=== PATIENT | male | born 1965 ===

== ENCOUNTER 2018-02-28 20:10 | Emergency (ER) | payer BC, OTHER ==
[2018-02-28 20:24] VITALS: RESP 18
--- NOTE | 2018-02-28 20:31 | C.PDOC ---
History Of Present Illness 52 y/o male brought by ambulance to ED for complaints of sustaining a small laceration to his left ankle after stepping on broken glass while cleaning his front yard today. Patient also reports a syncopal episode. Denies fever, chills , or any other physical complaints. Patient currently states he remembers the events and is speaking in complete sentences. Time Seen by Provider: 02/28/18 20:30 Chief Complaint (Nursing): Dizziness/Lightheaded History Per: Patient, Family History/Exam Limitations: no limitations Onset/Duration Of Symptoms: Hrs Current Symptoms Are (Timing): Still Present Associated Symptoms Preceding Syncopal Episode: No Predromal Symptoms (Sudden Onset) Seizure Or Post-ictal Symptoms: None Fall Associated With With Symptoms: No Injury As Result Of Fall Recent travel outside of the [place]: No Past Medical History Reviewed: Historical Data, Nursing Documentation, Vital Signs Vital Signs: Last Vital Signs Temp 97.7 F 02/28/18 23:04 Pulse 66 02/28/18 23:04 Resp 18 02/28/18 23:04 BP 101/61 02/28/18 23:04 Pulse Ox 99 02/28/18 23:35 - Medical History PMH: HTN Family History: States: No Known Family Hx - Social History Hx Alcohol Use: No Hx Substance Use: No - Immunization History Hx Tetanus Toxoid Vaccination: No Hx Influenza Vaccination: Yes Hx Pneumococcal Vaccination: No Review Of Systems Constitutional: Negative for: Fever, Chills Gastrointestinal: Negative for: Nausea, Vomiting, Abdominal Pain, Diarrhea Skin: Positive for: Other (Small laceration to left ankle ). Negative for: Rash Neurological: Negative for: Weakness, Numbness, Dizziness Physical Exam - Physical Exam Appears: Non-toxic, No Acute Distress Skin: Warm, Dry, Other (Vitiligo; 1cm laceration to left medial aspect of left ankle ) Head: Normacephalic Eye(s): bilateral: Normal Inspection Oral Mucosa: Moist Neck: Trachea Midline, Supple Chest: Symmetrical Cardiovascular: Rhythm Regular Respiratory: No Rales, No Rhonchi, No Wheezing Gastrointestinal/Abdominal: Soft, No Tenderness, No Distention Back: No CVA Tenderness Extremity: Normal ROM, No Deformity Extremity: Bilateral: Atraumatic, Normal Color And Temperature, Normal ROM Pulses: Left Dorsalis Pedis: Normal, Right Dorsalis Pedis: Normal Neurological/Psych: Oriented x3, Normal Speech (Speaking in complete sentences ) Gait: Steady ED Course And Treatment - Laboratory Results Result Diagrams: 02/28/18 21:49 02/28/18 21:49 ECG: Interpreted By Me, Viewed By Me ECG Rhythm: Sinus Rhythm (71), Nonspecific Changes O2 Sat by Pulse Oximetry: 99 (RA) Pulse Ox Interpretation: Normal - CT Scan/US CT Head Other Rad Studies (CT/US): Read By Radiologist, Radiology Report Reviewed CT/US Interpretation: EXAM: CT Head Without Intravenous Contrast. EXAM DATE/ TIME: 02/28/2018 8:46 PM. CLINICAL HISTORY: 52 years old, male; Signs and symptoms; Syncope and collapse; Additional info: R/O bleed. TECHNIQUE: Axial computed tomography images of the head/brain without intravenous contrast. All CT scans at this facility use at least one of these dose optimization techniques : automated. exposure control; mA and/or kV adjustment per patient size ( includes targeted exams where dose is. matched to clinical indication); or iterative reconstruction. Coronal and sagittal reformatted images were created and reviewed. COMPARISON: No relevant prior studies available. FINDINGS: Brain: Moderate white matter disease and volume loss are identified. There is no acute infarct or. edema. There is encephalomalacia in the right frontal and bilateral temporal lobes. No hemorrhage. Ventricles: Normal. No ventriculomegaly. Bones/joints: Normal. No acute fracture. Sinuses: There is fluid in the ethmoid sinus. Mastoid air cells: Normal as visualized. No mastoid effusion. Soft tissues: Normal. IMPRESSION: There are no acute concerning abnormalities. Progress Note: Administered IV fluids. Ordered EKG, blood work, CT Head, and urinalysis. 11:45 PM upon discharge, pt ambulated outside of the hospital and started to bleed from his sutured laceration site. Gel foam applied and pressure dressing applied by me. No active bleeding noted with ambulation. good capilary refil and pedal pulses Laceration - Laceration Repair Left medial aspect of left ankle Wound Length (In cm): 1 Description Of Wound: Linear Wound Cleansed With: Sterile Saline Anesthesia: Lidocaine 1% (5cc), With Epi Wound Examination: Irrigated With Saline Wound Closure: Suture (2 4.o vycryl) Suture Technique And Material Used: Interrupted Wound Complexity: Simple (Well tolerated) Disposition Counseled Patient/Family Regarding: Studies Performed, Diagnosis, Need For Followup - Disposition Referrals: Jose Aleman MD [IM] - Disposition: HOME/ ROUTINE Disposition Time: 20:31 Condition: FAIR Additional Instructions: Please return if symptoms recur. Have a wound check in 2 days and sutures removed in 7-10 days Instructions: Laceration Repair With Stitches (DC) Forms: [email or web address] (Hebrew) - Clinical Impression Clinical Impression: Vaso vagal episode, Laceration of ankle, left - Scribe Statement The provider has reviewed the documentation as recorded by the Ikeibnasreen Baum All medical record entries made by the Ikeibnasreen were at my direction and personally dictated by me. I have reviewed the chart and agree that the record accurately reflects my personal performance of the history, physical exam, medical decision making, and the department course for this patient. I have also personally directed, reviewed, and agree with the discharge instructions and disposition.
[2018-02-28] MEDS ORDERED: Sodium Chloride 0.9% 1,000 ML IV ONE (20:46)
[2018-02-28] MEDS ORDERED: Lidocaine 1%/Epinephrine 1:100000 30 ml vial IJ ONE (20:46)
[2018-02-28] MEDS ORDERED: Bacitracin 500 Units/gm Oint Foilpak UD ONE (21:04)
[2018-02-28 21:57] LABS: BASO # 0.1 K/uL (0.0-0.2); BASO % 0.9 % (0.0-2.0); EOS # 0.2 K/uL (0.0-0.7); EOS % 2.2 % (0.0-4.0); HEMOGLOBIN 10.8 g/dL (12.0-18.0); LYMPH # 1.7 K/uL (1.0-4.3); LYMPH % 17.3 % (20.0-40.0); MEAN CELL VOLUME 92.2 fL (80.0-94.0); MEAN CORPUSCULAR HEMOGLOBIN 31.8 pg (27.0-31.0); MEAN CORPUSCULAR HGB CONC 34.5 g/dL (33.0-37.0); MEAN PLATELET VOLUME 8.4 fL (7.2-11.7); MONO # 0.4 K/uL (0.0-0.8); MONO % 4.4 % (0.0-10.0); NEUT # 7.2 K/uL (1.8-7.0); NEUT % 75.2 % (50.0-75.0); RBC 3.39 Mil/uL (4.40-5.90); WHITE BLOOD COUNT 9.6 K/uL (4.8-10.8)
[2018-02-28 22:02] LABS: INR 1.1
[2018-02-28 22:05] LABS: ALB/GLOB RATIO 1.3 (1.0-2.1); ALBUMIN 3.1 g/dL (3.5-5.0); ALT/SGPT 30 U/L (21-72); AST/SGOT 17 U/L (17-59); BLOOD UREA NITROGEN 16 mg/dL (9-20); CALCIUM 8.1 mg/dl (8.6-10.4); GFR AFRICAN-AMERICAN > 60; GFR NON-AFRICAN AMERICAN > 60
[2018-02-28 22:13] LABS: SQUAMOUS EPITHIAL < 1 /hpf (0-5); URINE BILIRUBIN NEGATIVE (NEGATIVE); URINE BLOOD 1+ (NEGATIVE); URINE CLARITY Hazy (Clear); URINE COLOR Yellow (YELLOW); URINE GLUCOSE (UA) NORMAL (Normal); URINE HYALINE CAST >20 /lpf (0-2); URINE LEUKOCYTE ESTERASE NEG Leu/uL (Negative); URINE PROTEIN 1+ mg/dL (NEGATIVE); URINE UROBILINOGEN NORMAL mg/dL (0.2-1.0)
[2018-02-28] MEDS ORDERED: Potassium Chloride 10 mEq ER Tab PO STA (22:15)
[2018-02-28] MEDS ORDERED: Potassium Chloride 10 mEq ER Tab PO ONE (22:35)
[2018-02-28 23:06] VITALS: BP 101/61; PULSE 66; TEMP 97.7
[2018-02-28 23:11] VITALS: O2SAT 99
[2018-02-28] MEDS ORDERED: Absorbable Gelatin Sponge Size 12-7 ONE (23:54)
--- NOTE | 2018-03-01 08:16 | CT ---
Date of service: 02/28/2018 PROCEDURE: CT HEAD WITHOUT CONTRAST. HISTORY: R/O Bleed COMPARISON: None available. TECHNIQUE: Axial computed tomography images were obtained through the head/brain without intravenous contrast. Radiation dose: Total exam DLP = 784 mGy-cm. This CT exam was performed using one or more of the following dose reduction techniques: Automated exposure control, adjustment of the mA and/or kV according to patient size, and/or use of iterative reconstruction technique. FINDINGS: HEMORRHAGE: No intracranial hemorrhage. BRAIN: Scattered focal lucencies in the subcortical and periventricular white matter suggestive for chronic microvascular ischemic change. Moderate white matter disease and volume loss are identified. Encephalomalacia in the right frontal and bilateral temporal lobes. VENTRICLES: Unremarkable. No hydrocephalus. CALVARIUM: Unremarkable. PARANASAL SINUSES: Fluid in the ethmoid air cells. MASTOID AIR CELLS: Unremarkable as visualized. No inflammatory changes. OTHER FINDINGS: None. IMPRESSION: Chronic microvascular ischemic change. Encephalomalacia in the right frontal and bilateral temporal lobes. Sinus mucosal disease. If symptoms persists, consider MRI. These findings were preliminarily reported at 11:18 p.m. on 02/28/[address] Ajit Jones from [facility].
--- NOTE | 2018-03-01 17:43 | CARD ---
APPROVED REPORT Date of service: 02/28/2018 EKG Measurement Heart [id number] <Conclusion> Normal sinus rhythm Normal ECG
== END 2018-03-01 00:07 | disposition home or self-care (01) ==
LOC: C.ER 20:10
DX: S91.012A Laceration without foreign body, left ankle, initial encounter (principal); W25.XXXA Contact with sharp glass, initial encounter; Y93.H9 Activity, other involving exterior property and land maintenance, building and construction; Y92.096 Garden or yard of other non-institutional residence as the place of occurrence of the external cause; R55 Syncope and collapse; E87.6 Hypokalemia
CPT/HCPCS: 12001; 70450; 80053; 81001; 82948; 84484; 85025; 85610; 85730; 87086; 93005; 99285; J7030

== ENCOUNTER 2018-03-02 11:07 | Emergency (ER) | payer BC ==
[2018-03-02 11:19] VITALS: BMI 29.2
[2018-03-02 11:21] VITALS: RESP 18
[2018-03-02] MEDS ORDERED: Tdap Vaccine 0.5 ml Vial (10-64 yrs) IM ONE (11:45)
[2018-03-02] MEDS ORDERED: Tetanus/Diphtheria Toxoids 0.5 ml Syringe IM ONE (12:00)
--- NOTE | 2018-03-02 12:05 | C.PDOC ---
History Of Present Illness 52 y/o male presents to ED with c/o oozing and swelling to wound on left ankle s /p syncopal episode 2 days ago. Patient was seen at ED 2 days ago after syncopal episode and injury to left ankle, had dressing put on but came to ED today with concerns for ankle becoming swollen and wound oozing. Patient denies fever, chills, redness or any other complaints at this time. Time Seen by Provider: 03/02/18 11:36 Chief Complaint (Nursing): Abnormal Skin Integrity History Per: Patient History/Exam Limitations: no limitations Onset/Duration Of Symptoms: Days Current Symptoms Are (Timing): Still Present Past Medical History Reviewed: Historical Data, Nursing Documentation, Vital Signs Vital Signs: Last Vital Signs Temp 97.4 F L 03/02/18 13:37 Pulse 65 03/02/18 13:37 Resp 18 03/02/18 13:37 BP 110/68 03/02/18 13:37 Pulse Ox 100 03/02/18 13:37 - Medical History PMH: HTN Surgical History: No Surg Hx Family History: States: No Known Family Hx - Social History Hx Alcohol Use: Yes Hx Substance Use: No - Immunization History Hx Tetanus Toxoid Vaccination: No Hx Influenza Vaccination: Yes Hx Pneumococcal Vaccination: No Review Of Systems Constitutional: Negative for: Fever, Chills Cardiovascular: Negative for: Chest Pain Respiratory: Negative for: Shortness of Breath Musculoskeletal: Positive for: Foot Pain Skin: Negative for: Rash Neurological: Negative for: Weakness, Numbness Physical Exam - Physical Exam Appears: Non-toxic, No Acute Distress Skin: Warm, Dry, No Rash, Other (wound left medial aspect ankle, sutures intact , no redness, (+) blood tinged drainage) Head: Atraumatic Eye(s): bilateral: Normal Inspection Oral Mucosa: Moist Extremity: Capillary Refill (<2 seconds), No Deformity, Swelling (mild to left ankle surrounding wound), Other (no redness surrounding wound or left ankle) Extremity: Bilateral: Normal ROM Pulses: Left Dorsalis Pedis: Normal Neurological/Psych: Oriented x3, Normal Motor, Normal Sensation ED Course And Treatment O2 Sat by Pulse Oximetry: 99 (RA) Pulse Ox Interpretation: Normal - Other Rad No standard instances X-Ray: Interpreted by Me Interpretation: Left ankle: (+) hardware Progress Note: Wound cleaned, DSD applied. Treated with keflex PO. Discharged in stable condition Reassessment Condition: Improved Disposition Counseled Patient/Family Regarding: Diagnosis, Need For Followup, Rx Given - Disposition Referrals: [facility] [Outside] [facility] [Outside] Disposition: HOME/ ROUTINE Disposition Time: 13:10 Condition: STABLE Additional Instructions: Follow up with your PMD or clinic for further evaluation Return to ED if any increase symptoms Keep leg elevated Prescriptions: Cephalexin [Keflex] 500 mg PO Q6 #20 capsule Instructions: Wound Care Forms: [employer] (Thai) - POA Present On Arrival: None, Blood Incompatibility - Clinical Impression Clinical Impression: Laceration, Wound drainage, Laceration of ankle, left - PA / ALIGNMENT TECHNICIAN / Resident Statement MD/DO has reviewed & agrees with the documentation as recorded. - Scribe Statement The provider has reviewed the documentation as recorded by the Ikeibnasreen Stafford All medical record entries made by the Nolvia were at my direction and personally dictated by me. I have reviewed the chart and agree that the record accurately reflects my personal performance of the history, physical exam, medical decision making, and the department course for this patient. I have also personally directed, reviewed, and agree with the discharge instructions and disposition.
--- NOTE | 2018-03-02 12:25 | RAD ---
Date of service: 03/02/2018 PROCEDURE: Left Ankle Radiographs. HISTORY: pain COMPARISON: None FINDINGS: BONES: No acute fracture. Status post ORIF calcaneus. Eccentric Ovoid sclerotic osseous lesion in the lateral distal tibial diaphysis of uncertain significance. This has a nonaggressive appearance. There is no expansion or cortical destruction evident. Possible bone island. JOINTS: Normal. No osteoarthritis. Ankle mortise maintained. Talar dome intact SOFT TISSUES: Normal. OTHER FINDINGS: None. IMPRESSION: No acute fracture.
[2018-03-02 13:38] VITALS: BP 110/68; PULSE 65; TEMP 97.4
[2018-03-02 18:38] VITALS: O2SAT 99
== END 2018-03-02 14:16 | disposition home or self-care (01) ==
LOC: C.ER 11:07
DX: S91.012D Laceration without foreign body, left ankle, subsequent encounter (principal); X58.XXXD Exposure to other specified factors, subsequent encounter